=== PATIENT | male | born 1980 | race African-American/Black ===

== ENCOUNTER 2016-09-21 12:36 | Emergency (ER) | payer SELFPAY ==
[~2016-09-21] VITALS: Ht 172.7 cm; Wt 102.0 kg
[~2016-09-21 12:36] MED LIST: OFLO1DRO8 LEFT EYE; PENI500T PO
[2016-09-21 12:37] VITALS: BP 141/97; PULSE 78; RESP 16; TEMP 97.6; O2SAT 99
--- NOTE | 2016-09-21 13:05 | PD ---
Physical Exam Time Seen by Provider: 13:04 Narrative 35yo M c/o R eye redness and feeling of something in his eye since this morning. Nicolas trauma. Reports blurry vision. Patient seen in triage. VS reviewed. Awaiting bed placement. Data Data Last Documented VS Vital Signs Date Time Temp Pulse Resp B/P Pulse Ox O2 Delivery O2 Flow Rate FiO2 09/21/16 12:37 97.6 78 16 141/97 99 Room Air MDM Supervised Visit with YANA: Nikia Dennis Sep 21, 2016 13:05
--- NOTE | 2016-09-21 14:16 | PD ---
HPI . right eye pain x 1 day Chief Complaint: Eye Problems/Injury Time Seen by Provider: 14:15 Travel History International Travel<30 days: No Contact w/Intl Traveler<30days: No Traveled to known affect area: No History of Present Illness HPI 35-year-old male with no significant past medical history here with complaint of right eye pain for 1 day. Patient says he woke up this morning and felt as if there was some type of foreign body in his right eye. He tells me that it's been causing increased amount of watering and he decided come to the emergency department because he did not want to have a foreign body stuck in his eye. He denies any loss of vision, floaters or eye pain. He tells me the pain is located in the eye lid. PFSH Social History Alcohol Use: Yes Tobacco Use: Yes Substance Use: Yes (MARIJUANA) Allergies-Medications (Allergen,Severity, Reaction): Coded Allergies: No Known Allergies (Verified , 06/08/15) Reported Meds & Prescriptions Reported Meds & Active Scripts Active Tobramycin Opth Drops 0.3 % Soln 1 Drop RIGHT EYE Q6H Pen Vk (Penicillin V Potassium) 500 Mg Tab 500 Mg PO QID Ocuflox 0.3% Opht Soln (5 Ml) (Ofloxacin) 0.3 % Soln 2 Drop LEFT EYE DIRECTED 10 Days Instill 1-2 drops every 30 minutes while awake and every 4-6 hours after retiring for the first 2 days; beginning on day 3, instill 1-2 drops every hour while awake for 4-6 additional days; thereafter, 1-2 drops 4 times/day until clinical cure. Review of Systems General / Constitutional: No: Fever Eyes: Positive: Foreign Body Sensation, Tearing, No: Visual changes HENT: No: Headaches Cardiovascular: No: Chest Pain or Discomfort Respiratory: No: Shortness of Breath Gastrointestinal: No: Abdominal Pain Genitourinary: No: Dysuria Musculoskeletal: No: Pain Skin: No Rash Neurologic: No: Weakness Psychiatric: No: Depression Endocrine: No: Polydipsia Hematologic/Lymphatic: No: Easy Bruising Physical Exam Narrative GENERAL: AAO x 3, no acute distress, Well-nourished, well-developed patient. SKIN: Warm and dry. No visible rashes or bruising. HEAD: Normocephalic and atraumatic. EYES: No scleral icterus. No injection or drainage. EOM intact, PERRLA, right upper eyelid everted and there is a small pinpoint lesion that appears to be a small cyst, cotton tipped applicator used to see if any fb present, none appreciated. ENT: No nasal drainage noted. Mucous membranes pink. Airway patent. NECK: Supple, trachea midline. No JVD. CARDIOVASCULAR: Regular rate and rhythm without murmurs, gallops, or rubs. RESPIRATORY: Breath sounds equal bilaterally. No accessory muscle use. No rhonchi or rales. GASTROINTESTINAL: visual inspection normal EXTREMITIES: No cyanosis or edema. BACK: Nontender without obvious deformity. No CVA tenderness. PSYCH: AAO x 3, normal affect. Data Data Last Documented VS Vital Signs Date Time Temp Pulse Resp B/P Pulse Ox O2 Delivery O2 Flow Rate FiO2 09/21/16 12:37 97.6 78 16 141/97 99 Room Air MDM Medical Decision Making Medical Screen Exam Complete: Yes Emergency Medical Condition: Yes Medical Record Reviewed: Yes Differential Diagnosis conjunctivitis, right eye lid cyst, less likely fb, less likely retinal detachment Narrative Course 35 yr old male here and after exam there appears to be a distinct small cyst causing his pain. I will go ahead and prescribe some antibiotic eyedrops. He's been instructed to follow-up with ophthalmology as an outpatient. I instructed him to return to the emergency department for descending vision loss or eye pain. Case discussed with Dr. Padgett and she is in agreement. Patient verbalized understanding of instructions, questions were answered, and thanked me for their care. I advised them if their condition worsens, please return to the nearest emergency room for further care. Diagnosis Primary Impression: Cyst of right eyelid Referrals: [facility] Additional Instructions: Please return to emergency department if your symptoms return or worsen. Follow up with your primary care provider. Take medications as prescribed. Follow-up with an restoration silversmith in the next 2-3 days. If you develop any sudden onset of loss of vision or eye pain, go to the nearest emergency department. Med/Other Pt SpecificInfo: Prescription(s) given Scripts Tobramycin Opth Drops 0.3 % Soln1 Drop RIGHT EYE Q6H #1 BOTTLE Ref 0 Prov:Phuong Padgett MD 09/21/16 Disposition: 01 DISCHARGE HOME Condition: Stable Mangali,Fernanda PA Sep 21, 2016 14:16
[2016-09-21] MEDS ORDERED: AK-T0.3S RIGHT EYE (14:21)
== END 2016-09-21 15:49 | disposition home or self-care (01) ==
LOC: NEPD 12:36
DX: H02.823 Cysts of right eye, unspecified eyelid (principal); Z72.0 Tobacco use; F12.90 Cannabis use, unspecified, uncomplicated
CPT/HCPCS: 99283